=== PATIENT | male | born 1960 | race Caucasian/White ===

== ENCOUNTER → 2020-09-19 08:15 | Outpatient (CLI) | payer OTHER, SELFPAY ==
--- NOTE | 2020-09-19 08:18 | CT_ITS ---
STUDY: LOW DOSE CT LUNG CANCER SCREENING REASON FOR EXAM: Male, 60 years old. LUNG CANCER SCREENING 1PPD X 45 YEARS. COPD EMPHYSEMA RADIATION DOSAGE (If Supplied By Facility): CTDIvol = ( 4.02 ) mGy, DLP = ( 154.01 ) mGycm TECHNIQUE: No contrast was administered. Low dose technique was utilized (average mAS-38 and kVp 120). 1.25 mm axial source images with a slice interval of 1.25-mm were reconstructed in lung windows. 2.5 mm axial source images with a slice interval of 2.5-mm were reconstructed in lung windows. 5.0 mm axial source images with a slice interval of 5.0-mm were reconstructed in soft tissue windows. Nodule measured using lung windows on PACS and/or independent workstation with automated measurement of minimum and maximum diameter. Nodule measurement reported as average diameter rounded to the nearest whole number. Growth is defined as an increase ins size of greater than 1.5 mm. COMPARISON: None. NODULES: There is a 5.1 mm x 5 mm noncalcified nodule in the left upper lobe as seen on axial image #177 and coronal image #128. Emphysema: Hyperinflation. Emphysematous changes. Bullous changes in the upper lobes. Increased linear markings are seen in the posterior aspect of the right lung apex suggestive of scarring. Increased markings at the lung bases suggestive of scarring. Endobronchial lesion: None Aorta: Mild atherosclerotic plaques seen at the level of the aortic arch. Coronary arteries: Unremarkable. Heart: Unremarkable. Pulmonary artery: Unremarkable. Mediastinal nodes: Small benign-appearing mediastinal lymph nodes. Calcified bilateral hilar lymph nodes more prominent on the left side. Other chest and abdominal findings: CT/Low Dose CT Lung Screening IMPRESSION: Lung-RADS category 3 - Continue screening with LDCT in 6 months. IMPORTANT NOTES FOR USE: ACR Lung-RADS Version 1.0 Assessment Categories Release Date: December 06, 2013 Category: Coded 0-4 bases on nodule(s) with highest degree of suspicion. Negative screen is defined as categories 1 and 2; a positive screen is defined as categories 3 and 4. Category 3 and 4A nodules that are unchanged on interval CT should be coded as category 2, and individuals returned to screening in 12 months. Category 4X: Category 3 or 4 nodules with additional imaging findings that increase the suspicion of lung cancer, such as spiculation, GGN that doubles in size in 1 year, enlarged lymph notes, etc. Category Modifiers: S (significant finding unrelated to lung cancer) and C (prior history of treated lung cancer) may be added to the 0-4 Lung-RADS Electronically Signed: Thierno Wilson MD at 9:09 EST , Service support ,
== END ==
PROVIDERS: PCP Nurse Practitioner Primary Care; Referring Provider Internal Medicine Pulmonary Disease; Visit Provider Internal Medicine Pulmonary Disease
DX: Z87.891 Personal history of nicotine dependence (principal); Z12.2 Encounter for screening for malignant neoplasm of respiratory organs
CPT/HCPCS: 71271

== ENCOUNTER → 2021-03-16 13:05 | Outpatient (CLI) | payer MEDICARE, SELFPAY ==
--- NOTE | 2021-03-16 13:12 | CT_ITS ---
INDICATION: PULM NODULE EXAMINATION: CT Chest W/O Contrast Injection TECHNIQUE: Helically acquired images were obtained of the chest without IV contrast. A radiation dose optimization technique was used for this scan. COMPARISON: 09/19/2020. FINDINGS: NODULES: There is a stable 5.7 x 5.4 mm noncalcified nodule in the left upper lobe as seen on axial image 77. Emphysema: Hyperinflation. Emphysematous changes. Bullous changes in the upper lobes. Increased linear markings are seen in the posterior aspect of the right lung apex suggestive of scarring. Increased markings at the lung bases suggestive of scarring. Endobronchial lesion: None Aorta: Mild atherosclerotic plaques seen at the level of the aortic arch. Coronary arteries: Unremarkable. Heart: Unremarkable. Pulmonary artery: Unremarkable. Mediastinal nodes: Calcified bilateral hilar lymph nodes more prominent on the left side. CT/Chest without Contrast IMPRESSION: Lung-RADS category 2 - return to normal screening LDCT in 12 months. IMPORTANT NOTES FOR USE: ACR Lung-RADS Version 1.0 Assessment Categories Release Date: December 06, 2013 Category: Coded 0-4 bases on nodule(s) with highest degree of suspicion. Negative screen is defined as categories 1 and 2; a positive screen is defined as categories 3 and 4. Category 3 and 4A nodules that are unchanged on interval CT should be coded as category 2, and individuals returned to screening in 12 months. Category 4X: Category 3 or 4 nodules with additional imaging findings that increase the suspicion of lung cancer, such as spiculation, GGN that doubles in size in 1 year, enlarged lymph notes, etc. Category Modifiers: S (significant finding unrelated to lung cancer) and C (prior history of treated lung cancer) may be added to the 0-4 Lung-RADS Electronically Signed: John Hartman MD at 23:49 EDT Tel , Service support ,
== END ==
PROVIDERS: PCP Nurse Practitioner Primary Care; Referring Provider Internal Medicine Pulmonary Disease; Visit Provider Internal Medicine Pulmonary Disease
DX: R91.1 Solitary pulmonary nodule (principal)
CPT/HCPCS: 71250

== ENCOUNTER → 2022-03-16 | Outpatient (CLI) | payer MEDICARE, SELFPAY ==
--- NOTE | 2022-03-16 09:57 | CT_ITS ---
EXAM: CT CHEST, LUNG CANCER SCREENING WITHOUT INTRAVENOUS CONTRAST CLINICAL INDICATION: TOBACCO DEPENDENCE TECHNIQUE: Helically acquired images were obtained of the chest without intravenous contrast using low dose (LDCT) lung cancer screening protocol. This CT exam was performed using one or more of the following dose reduction techniques: automated exposure control, adjustment of the mA and/or kV according to patient size, and/or use of iterative reconstruction technique. This report was created using [employer] report generation technology. COMPARISON: CT Lung Cancer Screening dated 03/16/2021 FINDINGS: LUNGS AND PLEURAL SPACES: Prominent diffuse emphysematous changes of the lungs again noted. New 5 mm left lower lobe pulmonary nodule identified on image 134 sequence 2. Stable left upper lobe 6 mm pulmonary nodule on image 172 calcified granuloma within the right upper lobe is unchanged. No pleural effusion or thickening. No pneumothorax. HEART: Normal. Heart size is normal. No pericardial effusion. No significant coronary artery calcifications. MEDIASTINUM: Stable mildly prominent mediastinal lymph nodes. Multiple calcified bilateral hilar lymph nodes again seen. Esophagus is unremarkable. No hiatal hernia. THYROID: Normal. No thyroid lesions. BONES/JOINTS: Normal. No suspicious lytic or blastic abnormality. VASCULATURE: Normal. Thoracic aorta is non-dilated. LYMPH NODES: See above. CT/Low Dose CT Lung Screening IMPRESSION: 1. Prominent diffuse pulmonary emphysema. 2. Stable 6 mm left upper lobe pulmonary nodule. 3. 5 mm left lung nodule. ACR Lung CT Screening Reporting T Data System (Lung-RADS) score: 3S - Probably Benign. Additional clinically significant or potentially clinically significant findings are described. Recommend low-dose CT (LDCT) in 6 months. Electronically Signed: Jose Ortiz MD at 15:24 EDT ,
== END | disposition home or self-care (01) ==
LOC: CT 09:53
PROVIDERS: PCP Nurse Practitioner Primary Care; Visit Provider Internal Medicine Pulmonary Disease
DX: Z87.891 Personal history of nicotine dependence (principal)
CPT/HCPCS: 71271